=== PATIENT | female | born 1970 | race Two or more races ===

== ENCOUNTER 2018-04-10 15:10 | Outpatient (CLI) | payer OTHER | END 2018-04-10 16:36 | disposition home or self-care (01) | LOC: RAD 15:10 | DX: Z01.811 Encounter for preprocedural respiratory examination (principal) ==

== ENCOUNTER 2018-04-10 15:30 | Inpatient (IN) | payer OTHER | END 2018-04-15 09:43 | disposition home or self-care (01) | DRG 581 | LOC: EDSTATUS 15:30 → O/R 04-14 08:02 → SURH 04-14 14:00 → SURG 04-14 15:19 → SURH 04-14 15:30 → CIR.AMB 04-14 15:30 → EDSTATUS 04-14 15:30 → SURG 04-15 09:43 | PROVIDERS: Specialist | PROC: 0HTU0ZZ Resection of Left Breast, Open Approach (ICD-10-PCS; 2018-04-14) | PROC: BH01ZZZ Plain Radiography of Left Breast (ICD-10-PCS; 2018-04-14) | PROC: 07B60ZX Excision of Left Axillary Lymphatic, Open Approach, Diagnostic (ICD-10-PCS; principal; 2018-04-14 14:00) | DX: C50.112 Malignant neoplasm of central portion of left female breast (principal) ==

== ENCOUNTER 2021-12-17 08:00 | Day surgery (SDC) | payer OTHER ==
[~2021-12-17] VITALS: Ht 162.6 cm; Wt 72.6 kg
[~2021-12-17 08:00] MED LIST: TAMOXIFEN CITRA20 MG PO
== END 2021-12-17 21:26 | disposition home or self-care (01) ==
LOC: CIR.AMB 08:00
PROVIDERS: ATTEND Obstetrics & Gynecology
DX: T83.39XA Other mechanical complication of intrauterine contraceptive device, initial encounter (principal); Z30.432 Encounter for removal of intrauterine contraceptive device; Z20.822 Contact with and (suspected) exposure to COVID-19; Z86.16 Personal history of COVID-19

== ENCOUNTER → 2023-05-15 | Day surgery (SDC) | payer OTHER ==
[~2023-05-15] MED LIST changes: +NAPROXEN500 MG PO; +VITAMIN D PO
== END | disposition home or self-care (01) ==
LOC: ADM 05-09 11:15 → CIR.AMB 07:00
PROVIDERS: ATTEND Obstetrics & Gynecology
DX: D25.0 Submucous leiomyoma of uterus (principal); N85.2 Hypertrophy of uterus; R93.89 Abnormal findings on diagnostic imaging of other specified body structures; Z20.822 Contact with and (suspected) exposure to COVID-19